=== PATIENT | female | born 1975 ===

== ENCOUNTER 2019-07-02 18:19 | Emergency (ER) | payer SELFPAY ==
--- NOTE | 2019-07-02 18:57 | Event Note ---
ED Screening Note Date of service: 07/02/19 Time: 18:52 ED Screening Note: This is a 44 y.o. F. that presents to the ER with left sided abdominal pain for 2 weeks. - n/v/d, vaginal discharge, urinary symptoms, back pain, and chest pain PMH of DM2, HTN, sleep apnea This initial assessment/diagnostic orders/clinical plan/treatment(s) is/are subject to change based on patients health status, clinical progression and re- assessment by fellow clinical providers in the ED. Further treatment and workup at subsequent clinical providers discretion. Patient/guardian urged not to elope from the ED as their condition may be serious if not clinically assessed and managed. Initial orders include: Labs and CT of abdomen and pelvis
[2019-07-02 19:34] LABS: Hematocrit 37.4 % (30.3-42.9); Hemoglobin 12.4 gm/dl (10.1-14.3); Mean Corpuscular HGB Conc 33 % (30-34); Mean Corpuscular Volume 95 fl (79-97); Platelet Count 275 K/mm3 (140-440); Red Blood Count 3.95 M/mm3 (3.65-5.03); Red Cell Distribution Width 14.2 % (13.2-15.2)
[2019-07-02 19:53] LABS: Alanine Aminotransferase 22 units/L (7-56); Albumin 4.1 g/dL (3.9-5); BUN/Creatinine Ratio 14; Blood Urea Nitrogen 13 mg/dL (7-17); Calcium 9.1 mg/dL (8.4-10.2); Hemolysis Index 10
[2019-07-02 20:12] LABS: Basophils % (Manual) 0 % (0.0-1.8); Total Cells Counted 100
[2019-07-02 20:13] LABS: RBC Morphology Normal
--- NOTE | 2019-07-02 20:48 | Emergency Department Report ---
ED Abdominal Pain HPI - General Chief Complaint: Abdominal Pain Stated Complaint: L SIDE/BACK PAIN/POST NASAL DRIP Time Seen by Provider: 07/02/19 18:52 Source: patient Mode of arrival: Ambulatory Limitations: No Limitations - History of Present Illness Initial Comments: 44-year-old female presents to ED with left lower abdominal pain 2 weeks. Patient reports history of bladder issues and which she has had to have her bladder stretched multiple times. Patient reports history of chronic UTIs, thinks she may have a UTI. Denies nausea, vomiting, diarrhea, fever, vaginal bleeding or discharge. Patient also reports history of chronic low back pain, currently reports an exacerbation of her chronic pain. Also reports postnasal drip. States she has recently seen an ear nose and throat doctor for her symptoms, and was given multiple medications for this issue. MD Complaint: abdominal pain -: week(s) (2) Location: LLQ Radiation: none Migration to: no migration Severity: mild Quality: aching Consistency: intermittent Improves With: nothing Worsens With: nothing Associated Symptoms: denies: nausea, vomiting, diarrhea, fever, dysuria - Related Data Previous Rx's Medication Instructions Recorded Last Taken Type Dicyclomine [Bentyl] 20 mg PO QID PRN #20 tablet 07/02/19 Unknown Rx Allergies Allergy/AdvReac Type Severity Reaction Status Date / Time acetaminophen [From Percocet] Allergy Anaphylaxis Verified 07/02/19 18:23 hydrocodone Allergy Anaphylaxis Verified 07/02/19 18:23 oxycodone [From OxyContin] Allergy Anaphylaxis Verified 07/02/19 18:23 Penicillins Allergy Anaphylaxis Verified 07/02/19 18:23 ED Review of Systems ROS: Stated complaint: L SIDE/BACK PAIN/POST NASAL DRIP Other details as noted in HPI Comment: All other systems reviewed and negative Constitutional: denies: chills, fever Gastrointestinal: abdominal pain. denies: nausea, vomiting, diarrhea Genitourinary: frequency, abnormal menses (currently on DepoProvera injections). denies: discharge Musculoskeletal: back pain Neurological: denies: weakness, numbness ED Past Medical Hx - Past Medical History Previous Medical History?: Yes Hx Diabetes: Yes - Surgical History Past Surgical History?: Yes Hx Breast Surgery: Yes Additional Surgical History: tonsillectomy. x 4. left foot surgery. gastric sleeve - Social History Smoking Status: Never Smoker Substance Use Type: None - Medications Home Medications: Home Medications Medication Instructions Recorded Confirmed Last Taken Type Dicyclomine [Bentyl] 20 mg PO QID PRN #20 tablet 07/02/19 Unknown Rx ED Physical Exam - General Limitations: No Limitations General appearance: alert, in no apparent distress, other (nontoxic appearing) - Head Head exam: Present: atraumatic, normocephalic - Eye Eye exam: Present: normal appearance, EOMI - ENT ENT exam: Present: mucous membranes moist - Neck Neck exam: Present: normal inspection, full ROM - Respiratory Respiratory exam: Present: normal lung sounds bilaterally. Absent: respiratory distress - Cardiovascular Cardiovascular Exam: Present: regular rate, normal rhythm - GI/Abdominal GI/Abdominal exam: Present: soft, tenderness (very mild LLQ tenderness). Absent: distended - Extremities Exam Extremities exam: Present: normal inspection - Neurological Exam Neurological exam: Present: alert, oriented X3 - Psychiatric Psychiatric exam: Present: normal affect, normal mood - Skin Skin exam: Present: warm, dry, intact, normal color ED Course Vital Signs 07/02/19 07/02/19 18:27 23:01 Temperature 99.0 F Pulse Rate 83 74 Respiratory 18 16 Rate Blood Pressure 142/93 Blood Pressure 114/78 [Right] O2 Sat by Pulse 100 99 Oximetry ED Medical Decision Making - Lab Data Result diagrams: 07/02/19 19:12 07/02/19 19:12 - Radiology Data Radiology results: report reviewed, image reviewed - Differential Diagnosis UTI, ectopic , diverticulitis Critical care attestation.: If time is entered above; I have spent that time in minutes in the direct care of this critically ill patient, excluding procedure time. ED Disposition Clinical Impression: Abdominal pain Disposition: - TO HOME OR SELFCARE Is pt being admited?: No Condition: Stable Instructions: Abdominal Pain (ED) Prescriptions: Dicyclomine [Bentyl] 20 mg PO QID PRN #20 tablet PRN Reason: abdominal pain Referrals: [facility] [Other] - 3-5 Days [facility] [Provider Group] - 3-5 Days Time of Disposition: 22:50
--- NOTE | 2019-07-02 21:53 | Cat Scan Report ---
CT ABDOMEN AND PELVIS WITH CONTRAST INDICATION: left sided abdominal pain CONTRAST: 100 cc Omnipaque 300 IV COMPARISON: None available. All CT scans at this location are performed using CT dose reduction for ALARA by means of automated e xposure control. FINDINGS: Lung bases are clear. No pneumoperitoneum is noted. Liver is mildly enlarged and has a catalina th of 19.2 cm. In the upper posterior aspect of the right lobe of the dome of the diaphragm and 19 mm hyperdense area probably is a small hemangioma. Tiny probable cyst is seen in the left kidney. No ot her masses are seen. No urinary obstructive changes are noted. Appendix appears within normal limits. No lymphadenopathy is seen. No free fluid is noted. No evidence of bowel obstruction is seen. No foc al inflammatory changes are noted. Gastric surgical changes are seen. Gallbladder and bile ducts appe ar within normal limits. A calcification in the lower pelvis just posterior to the bladder appears to not be urinary and probably is vascular. IMPRESSION: No acute abnormalities are seen Signer Name: Vernon Wynne MD Signed: 07/02/2019 9:48 PM Workstation Name: [id number]
[2019-07-02 22:30] LABS: Bilirubin,Urine NEG (Negative); Blood,Urine NEG (Negative); Color,Urine Straw (Yellow); Protein,Urine <15 mg/dL mg/dL (Negative)
[2019-07-02 23:02] VITALS: BP 114/78
== END 2019-07-02 23:01 | disposition home or self-care (01) ==
LOC: ED 18:19
DX: R10.32 Left lower quadrant pain (principal); E11.9 Type 2 diabetes mellitus without complications; Z98.890 Other specified postprocedural states; Z90.89 Acquired absence of other organs; Z79.899 Other long term (current) drug therapy; Z88.0 Allergy status to penicillin; Z88.6 Allergy status to analgesic agent
CPT/HCPCS: 36415; 74177; 80053; 81001; 83690; 84703; 85007; 85025; 99284; Q9967